=== PATIENT | female | born 1980 | race Caucasian/White ===

== ENCOUNTER → 2017-10-21 | Outpatient (CLI) | payer OTHER ==
[~2017-10-21] MED LIST: Bactrim Ds Tab1 EACH PO; CYCL10 PO; NAPR500 PO; TRAM50 PO; Veetids 500500 MG PO
== END ==
LOC: LAB SHORT 10:00 → LAB 10:00 → LAB FUT 10-11 16:05
DX: K21.9 Gastro-esophageal reflux disease without esophagitis (principal)
CPT/HCPCS: 87338

== ENCOUNTER → 2022-12-01 | Outpatient (CLI) | payer OTHER ==
[2022-12-01 14:57] LABS: Follicle Stimulating Hormone 61.2 mIU/ml; Luteinizing Hormone 24.7 mIU/ml
[2022-12-02 15:08] LABS: HPV 16 Negative (Negative); HPV 18 Negative (Negative); HPV OTHER HR TYPES Negative (Negative)
== END | disposition home or self-care (01) ==
LOC: LAB SHORT 13:42 → LAB 13:42
PROVIDERS: Registered Nurse Community Health
DX: Z12.4 Encounter for screening for malignant neoplasm of cervix (principal); N95.1 Menopausal and female climacteric states
CPT/HCPCS: 83001; 83002; 87624; G0145

== ENCOUNTER → 2023-04-21 | Outpatient (CLI) | payer OTHER | LOC: LAB 17:27 → LAB SHORT 17:27 | DX: N30.00 Acute cystitis without hematuria (principal) | CPT/HCPCS: 87077; 87086; 87186 ==

== ENCOUNTER → 2023-06-24 | Outpatient (CLI) | payer OTHER | END | disposition home or self-care (01) | LOC: LAB 07:55 → LAB SHORT 07:55 | DX: N95.0 Postmenopausal bleeding (principal) | CPT/HCPCS: 88305 ==